=== PATIENT | male | born 1995 | race Caucasian/White ===

== ENCOUNTER 2016-09-28 15:47 | Emergency (ER) | payer SELFPAY ==
[2016-09-28 16:26] VITALS: BP 146/74
[2016-09-28] MEDS ORDERED: Lidocaine 2% PF* 5 ML VIAL ONE (17:38)
--- NOTE | 2016-09-28 23:08 | UC ---
Iggy Florentino Janilya, scribed for Sasha Pierce MD on 09/28/16 at 1659 . Laceration HPI - HPI Summary HPI Summary: A 21 y/o male came in to [facility] presenting w/ a sudden onset of laceration of left thumb. Pt states that today at 1530 while at work, pt's left thumb got stuck in the machine and was cut. 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 FMHx DM. - History Of Current Complaint Chief Complaint: UCLaceration Stated Complaint: HAND LACERATION Time Seen by Provider: 09/28/16 16:48 Hx Obtained From: Patient Laceration Location: Finger - left thumb Mechanism Of Injury: Blunt Trauma Onset/Duration: Sudden Onset, Lasting Hours, Still Present Severity: Moderate Pain Intensity: 4 Pain Scale Used: 0-10 Numeric Aggravating Factors: Nothing Related History: Occupational Injury - Allergies/Home Medications Allergies/Adverse Reactions: Allergies Allergy/AdvReac Type Severity Reaction Status Date / Time Clindamycin Allergy Rash Verified 09/28/16 16:26 Home Medications: Home Medications NK [No Home Medications Reported] 09/28/16 [History Confirmed 09/28/16] PMH/Surg Hx/FS Hx/Imm Hx Previously Healthy: Yes Cardiovascular History Of: Reports: Cardiac Disorders - pericarditis - Surgical History Surgical History: Yes Surgery Procedure, Year, and Place: left wrist - Family History Known Family History: Positive: Diabetes - Social History Occupation: Employed Full-time, Student Alcohol Use: Occasionally Substance Use Type: None Smoking Status (MU): Former Smoker Review of Systems Constitutional: Negative Skin: Other - laceration of left thumb Eyes: Negative ENT: Negative Respiratory: Negative Cardiovascular: Negative Gastrointestinal: Negative Genitourinary: Negative Motor: Negative Neurovascular: Negative Musculoskeletal: Negative Neurological: Negative Psychological: Negative All Other Systems Reviewed And Are Negative: Yes Physical Exam Triage Information Reviewed: Yes Appearance: Well-Appearing, Well-Nourished, Pain Distress Vital Signs: Initial Vital Signs Temp 100.4 F 09/28/16 16:21 Pulse 68 09/28/16 16:21 Resp 18 09/28/16 16:21 BP 146/74 09/28/16 16:21 Pulse Ox 99 09/28/16 16:21 Vital Signs Reviewed: Yes Eyes: Positive: Conjunctiva Clear ENT: Positive: Normal ENT inspection Neck: Positive: Supple Respiratory: Positive: No respiratory distress Cardiovascular: Positive: RRR, Pulses Normal, Brisk Capillary Refill Musculoskeletal: Positive: Strength Intact, ROM Intact Neurological: Positive: Alert, Muscle Tone Normal Psychological Exam: Normal Skin: Positive: Other - flap laceration of left thumb lateral aspect near nail, but not involving the nail. No subungual hematoma Laceration Repair - Laceration Repair 1 Laceration Size After Repair: Length (cm) - 1 cm, Width (mm) - 2 mm, Depth (mm) - 2 mm Type Injection: Digital - digital block Anesthesia Used: 2.0% Lido Cleansing Completed Via Routine Prep: Yes Closure Material: Sutures Closure Method: Single Layer Suture Of: Skin - 4 stitches of flap laceration Suture Type: Nylon - 5-0 Laceration Course/Dx - Differential Dx - Laceration/Wound Differental Diagnoses: Laceration Provider Diagnoses: Flap laceration with sutures Discharge - Discharge Plan Condition: Stable Disposition: HOME Patient Education Materials: Care For Your Stitches (ED), Finger Laceration (ED ) Forms: *Work Release Referrals: [facility] [Outside] Additional Instructions: Return to urgent care if any new or worsening symptoms. The documentation as recorded by the Iggy munoz Janilya accurately reflects the service I personally performed and the decisions made by , Sasha Pierce MD.
== END 2016-09-28 18:50 | disposition home or self-care (01) ==
LOC: UCEAST 15:47
DX: S61.012A Laceration without foreign body of left thumb without damage to nail, initial encounter (principal); W31.9XXA Contact with unspecified machinery, initial encounter; Y93.89 Activity, other specified; Y92.9 Unspecified place or not applicable; Y99.0 Civilian activity done for income or pay; R03.0 Elevated blood-pressure reading, without diagnosis of hypertension; Z88.1 Allergy status to other antibiotic agents; Z87.891 Personal history of nicotine dependence
CPT/HCPCS: 12001; 99201; G0463

== ENCOUNTER 2016-10-07 08:32 | Emergency (ER) | payer OTHER ==
[2016-10-07 08:46] VITALS: BP 132/72
--- NOTE | 2016-10-07 08:57 | UC ---
HPI Wound/Suture Re-check - HPI Summary HPI Summary: 4 STITCHES PLACED TO DISTAL LEFT THUMB 09/28/16. IS HERE FOR SUTURE REMOVAL. NO COMPLICATIONS. DENIES PAIN. - History Of Current Complaint Chief Complaint: UCSkin Stated Complaint: SUTURE REMOVAL Time Seen by Provider: 10/07/16 08:53 Hx Obtained From: Patient Severity: Mild Pain Intensity: 0 Pain Scale Used: 0-10 Numeric - Allergies/Home Medications Allergies/Adverse Reactions: Allergies Allergy/AdvReac Type Severity Reaction Status Date / Time Clindamycin Allergy Rash Verified 10/07/16 08:46 PMH/Surg Hx/FS Hx/Imm Hx Endocrine History Of: Denies: Diabetes, Thyroid Disease Cardiovascular History Of: Reports: Cardiac Disorders - pericarditis Denies: Hypertension Respiratory History Of: Denies: COPD, Asthma GI/ History Of: Denies: Ulcer - Surgical History Surgical History: Yes Surgery Procedure, Year, and Place: left wrist - Family History Known Family History: Positive: Diabetes - Social History Alcohol Use: Occasionally Substance Use Type: None Smoking Status (MU): Former Smoker Review of Systems Constitutional: Negative Skin: Other - SUTURES IN PLACE LEFT THUMB Respiratory: Negative Cardiovascular: Negative Gastrointestinal: Negative All Other Systems Reviewed And Are Negative: Yes Physical Exam Triage Information Reviewed: Yes Appearance: Well-Appearing, No Pain Distress, Well-Nourished Vital Signs: Initial Vital Signs Temp 97.8 F 10/07/16 08:41 Pulse 68 10/07/16 08:41 Resp 16 10/07/16 08:41 BP 132/72 10/07/16 08:41 Pulse Ox 100 10/07/16 08:41 Vital Signs Reviewed: Yes Eyes: Positive: Conjunctiva Clear ENT: Positive: Hearing grossly normal Neck: Positive: Supple Respiratory: Positive: No respiratory distress, No accessory muscle use Cardiovascular: Positive: Pulses Normal Abdomen Description: Positive: Soft Musculoskeletal: Positive: No Edema Neurological: Positive: Alert Psychological: Positive: Age Appropriate Behavior Skin: Positive: Other - 4 SUTURES IN DISTAL LEFT THIMB. SKIN EDGES WELL ALIGNED. NO ERYTHEMA, DRAINAGE OR TENDERNESS Course/Dx - Course Course Of Treatment: 4 SUTURES REMOVED WITHOUT DIFFICULTY. WOUND HEALING WELL. - Differential Dx - Laceration/Wound Provider Diagnoses: SUTURE REMOVAL - LEFT THUMB Discharge - Discharge Plan Condition: Stable Disposition: HOME Patient Education Materials: Stitches Removal (ED) Referrals: No Primary Care Phys,NOPCP [Primary Care Provider] -
== END 2016-10-07 09:02 | disposition home or self-care (01) ==
LOC: UCEAST 08:32
DX: Z48.02 Encounter for removal of sutures (principal); Z88.1 Allergy status to other antibiotic agents
CPT/HCPCS: 99211; G0463